=== PATIENT | male | born 1955 ===

== ENCOUNTER 2023-07-19 09:00 | Inpatient (IN) | payer OTHER ==
[~2023-07-19] VITALS: Ht 172.7 cm; Wt 133.8 kg
[2023-07-19 09:47] LABS: URINE APPEARANCE Clear; URINE BILIRRUBIN Negative (NEGATIVE); URINE BLOOD Negative; URINE COLOR Yellow; URINE LEUKOCYTE Trace; URINE NITRATE Negative; URINE PROTEIN Negative (NEGATIVE); URINE UROBILINOGEN 0.2 E.U./dl
[2023-07-19 09:51] LABS: URINE BACTERIA 513.9 uL (0.0-1933); URINE EPITHELIAL CELLS 21.3 uL (0.0-38.8); URINE WBC 29.9 uL (0.0-23.2)
[2023-07-19 09:52] LABS: HEMATOCRIT 45.5 % (39.0-48.0); HEMOGLOBIN 15.8 g/dL (13-16.00); MEAN CELL VOLUME 92.7 fL (80.0-100.00); MEAN CORPUSCULAR HEMOGLOBIN 32.2 pg (27.00-32.0); MEAN CORPUSCULAR HGB CONC 34.8 g/dl (32.0-36.0); PLATELET COUNT 184 K/uL (150-450); RED BLOOD COUNT 4.91 M/uL (4.00-6.00); RED CELL DISTRIBUTION WIDTH 14.5 % (11.5-14.5)
[2023-07-19] MEDS ORDERED: ZOCOR20 MG PO (09:56)
[2023-07-19] MEDS ORDERED: ALTACE10 MG PO (09:57)
[2023-07-19] MEDS ORDERED: LANTUS SOL100 UNIT/1 (09:57)
[2023-07-19] MEDS ORDERED: [UNRECOGNIZED DRUG - REMARK] (09:58)
[2023-07-19 09:59] LABS: URINE GLUCOSE >=1000 MG/DL (NEGATIVE); URINE RBC 0.8 uL (0.0-20.8)
[2023-07-19 10:32] LABS: ALBUMIN 3.8 gm/dL (3.4-5.0); BILIRUBIN TOTAL 0.49 mg/dL (0.3-1.2); CALCIUM 10.4 mg/dL (8.5-10.1); CREATININE SERUM 0.94 mg/dL (0.70-1.30); GFR 80.29; GLOBULINA 4.3 G/DL (2.4-3.5); POTASSIUM 4.77 mEq/L (3.5-5.1); TOTAL PROTEIN 8.1 gm/dL (6.4-8.2)
[2023-07-19 10:46] LABS: INR 0.98; PARTIAL THROMBOPLASTIN TIME 28.2 SECONDS (22.0-34.0); PROTHROMBIN TIME 10.3 SECONDS (9.0-11.5)
[2023-08-01] MEDS ORDERED: CEFAZOLIN SODIUM 1,000 MG VIAL ONE ×2 (06:32→12:54)
[2023-08-01] MEDS ORDERED: TRANEXAMIC ACID 100MG/1ML (1000MG) AMPUL IV ONE ×3 (06:33→08:45)
[2023-08-01] MEDS ORDERED: BUPIVACAINE HCL/PF 0.5% 30ML ML ONE (07:34)
[2023-08-01] MEDS ORDERED: KETOROLAC TROMETHAMINE 60 MG VIAL IM ONE ×2 (07:34→08:45)
[2023-08-01] MEDS ORDERED: LIDOCAINE HCL 1%/Epi 20ML VIAL IJ ONE (07:34)
[2023-08-01] MEDS ORDERED: TRIJARDY XR 121 EACH (07:58)
[2023-08-01] MEDS ORDERED: FAMOTIDINE40 MG (07:58)
[2023-08-01] MEDS ORDERED: ONDANSETRON HCL 2 MG/ML VIAL IV PRN (08:00)
[2023-08-01] MEDS ORDERED: OxyCODONE HCL/APAP UD (PERCOCET) PO PRN (08:00)
[2023-08-01] MEDS ORDERED: SIMVASTATIN20 MG (08:01)
[2023-08-01] MEDS ORDERED: RAMIPRIL10 MG (08:01)
[2023-08-01] MEDS ORDERED: LIDOCAINE HCL 1% 200MG/20ML VIAL IJ ONE (08:45)
[2023-08-01] MEDS ORDERED: CEFAZOLIN SODIUM 1,000 MG VIAL IV ONE (08:45)
[2023-08-01] MEDS ORDERED: BUPIVACAINE HCL 30 ML VIAL IJ ONE (08:45)
[2023-08-01] MEDS ORDERED: CEFAZOLIN SODIUM 1,000 MG VIAL IV SCH (12:00)
[2023-08-01] MEDS ORDERED: MORPHINE SULFATE 4 MG/ML CARTRIDGE IV SCH (12:00)
[2023-08-01] MEDS ORDERED: ENALAPRILAT DIHYDRATE 1.25 MG/ML VIAL IV PRN (15:30)
[2023-08-01] MEDS ORDERED: DEXTROSE 50 % IN WATER 0.5 G/ML DISP.SYRIN IV PRN (15:30)
[2023-08-01] MEDS ORDERED: INSULIN LISPRO 1,000 UNIT/10 ML UNITS SUBCUTANEO PRN (15:30)
[2023-08-01] MEDS ORDERED: BUPIVACAINE HCL/PF 0.25% 30ML VIAL InF ONE (18:55)
[2023-08-01] MEDS ORDERED: GABAPENTIN 100 MG CAPSULE PO SCH (21:00)
[2023-08-01] MEDS ORDERED: ORPHENADRINE CITRATE 100 MG TABLET PO SCH (21:00)
[2023-08-02 05:22] LABS: HEMATOCRIT 40.5 % (39.0-48.0); HEMOGLOBIN 13.8 g/dL (13-16.00); MEAN CELL VOLUME 92.5 fL (80.0-100.00); MEAN CORPUSCULAR HEMOGLOBIN 31.6 pg (27.00-32.0); MEAN CORPUSCULAR HGB CONC 34.1 g/dl (32.0-36.0); PLATELET COUNT 150 K/uL (150-450); RED BLOOD COUNT 4.37 M/uL (4.00-6.00); RED CELL DISTRIBUTION WIDTH 14.2 % (11.5-14.5)
[2023-08-02] MEDS ORDERED: ENOXAPARIN SODIUM 30 MG/0.3 ML SYRINGE SUBCUTANEO SCH (09:00)
[2023-08-02] MEDS ORDERED: RAMIPRIL 5 MG CAPSULE PO SCH (09:00)
[2023-08-02] MEDS ORDERED: VITAMIN B COMPLEX 1 EACH PO SCH (12:25)
[2023-08-02] MEDS ORDERED: Cyanocobalamin/Mecobalamin 1 TAB.SL SL SCH (12:25)
[2023-08-02] MEDS ORDERED: IRON FUM,PS/FOLIC ACID/VITC/B3 1 CAP CAPSULE PO SCH (12:26)
[2023-08-03 05:53] LABS: HEMATOCRIT 38.1 % (39.0-48.0); HEMOGLOBIN 13.3 g/dL (13-16.00); MEAN CELL VOLUME 91.2 fL (80.0-100.00); MEAN CORPUSCULAR HEMOGLOBIN 31.7 pg (27.00-32.0); MEAN CORPUSCULAR HGB CONC 34.8 g/dl (32.0-36.0); PLATELET COUNT 151 K/uL (150-450); RED BLOOD COUNT 4.18 M/uL (4.00-6.00); RED CELL DISTRIBUTION WIDTH 14.1 % (11.5-14.5)
[2023-08-03] MEDS ORDERED: OxyCODONE HCL/APAP UD (PERCOCET) PO PRN (09:00)
[2023-08-03] MEDS ORDERED: NORFLEX100MG PO (12:16)
[2023-08-03] MEDS ORDERED: XARELTO10 MG PO (12:16)
[2023-08-03] MEDS ORDERED: OXYC1TAB9 PO (12:16)
[2023-08-03] MEDS ORDERED: GABAPENTIN100 MG PO (12:16)
== END 2023-08-03 21:03 | DRG 470 ==
LOC: O/R 08-01 05:14 → SURH 08-01 07:00 → SURG 08-01 11:10
PROVIDERS: ADMIT Orthopaedic Surgery; ATTEND Orthopaedic Surgery
PROC: 0SRC0JZ Replacement of Right Knee Joint with Synthetic Substitute, Open Approach (ICD-10-PCS; principal; 2023-08-01 07:00)
DX: M17.11 Unilateral primary osteoarthritis, right knee (principal); D62 Acute posthemorrhagic anemia

== ENCOUNTER 2023-12-11 11:17 | Outpatient (CLI) | payer OTHER ==
[~2023-12-11 11:17] MED LIST: ALTACE10 MG PO; FAMOTIDINE40 MG; GABAPENTIN100 MG PO; LANTUS SOL100 UNIT/1; NORFLEX100MG PO; OXYC1TAB9 PO; RAMIPRIL10 MG; SIMVASTATIN20 MG; TRIJARDY XR 121 EACH; XARELTO10 MG PO; ZOCOR20 MG PO; [UNRECOGNIZED DRUG - REMARK]
== END 2023-12-11 11:22 | disposition home or self-care (01) ==
LOC: RAD 11:17
PROVIDERS: ATTEND Orthopaedic Surgery
DX: M25.561 Pain in right knee (principal); M25.562 Pain in left knee